=== PATIENT | female | born 1950 | race Caucasian/White ===

== ENCOUNTER 2019-07-21 09:35 | Observation (INO) ==
[2019-07-21] MEDS ORDERED: Isovue-370 500 ML BOTTLE IVP ONE ×2 (10:15→10:16)
[2019-07-21 10:28] LABS: Hematocrit 38.9 % (35.3-44.9); Hemoglobin 13.3 g/dL (11.5-15.4); Mean Corpuscular HGB Conc 34.2 g/dL (31.6-35.5); Mean Corpuscular Hemoglobin 31.2 pg (28.0-33.3); Mean Corpuscular Volume 91.3 fL (83.0-100.0); Mean Platelet Volume 11.2 fL (9.4-12.4); Platelet Count 158 K/mcL (140-400); Red Blood Count 4.26 M/mcL (3.82-4.97); White Blood Count 6.4 K/mcL (4.3-11.1)
[2019-07-21] MEDS ORDERED: Aspirin 325 MG TABLET PO ONE (10:40)
[2019-07-21 11:00] LABS: BUN/Creatinine Ratio 28 (6-26); Blood Urea Nitrogen 22 mg/dL (8-23); Calcium 10.1 mg/dL (8.6-10.3); Carbon Dioxide 29 mEq/L (23-29); Chloride 102 mEq/L (98-107); Ethanol < 10 mg/dL (Less than 10); Glucose 152 mg/dL (70-105); Osmolality,Calculated 306 (280-300); Potassium 3.7 mEq/L (3.5-5.1); Sodium 145 mEq/L (136-145); Troponin I < 0.03 ng/mL (< 0.04); eGFR For African Americans > 60 (> 60); eGFR For Non-African Americans > 60 (> 60)
[2019-07-21] MEDS ORDERED: Naloxone 0.4 MG/ML INJ IVP PRN (15:49)
[2019-07-22 07:15] LABS: Basophils # 0.1 K/mcL (0.0-0.2); Basophils % 1.1 %; Eosinophils # 0.2 K/mcL (0.0-0.6); Eosinophils % 4.2 %; Hematocrit 36.3 % (35.3-44.9); Hemoglobin 12.2 g/dL (11.5-15.4); Immature Granulocytes % 0.4 % (0-4); Lymphocytes # 1.6 K/mcL (0.6-4.6); Lymphocytes % 34.2 %; Mean Corpuscular HGB Conc 33.6 g/dL (31.6-35.5); Mean Corpuscular Hemoglobin 30.8 pg (28.0-33.3); Mean Corpuscular Volume 91.7 fL (83.0-100.0); Mean Platelet Volume 11.3 fL (9.4-12.4); Monocytes # 0.3 K/mcL (0.0-1.3); Monocytes % 6.5 %; Neutrophils # 2.6 K/mcL (1.6-8.9); Platelet Count 135 K/mcL (140-400); Red Blood Count 3.96 M/mcL (3.82-4.97); Red Cell Distribution Width 12.2 % (11.5-14.5); Segmented Neutrophils % 53.6 %; White Blood Count 4.8 K/mcL (4.3-11.1)
[2019-07-22 07:16] LABS: BUN/Creatinine Ratio 29 (6-26); Blood Urea Nitrogen 23 mg/dL (8-23); Calcium 9.8 mg/dL (8.6-10.3); Carbon Dioxide 31 mEq/L (23-29); Chloride 102 mEq/L (98-107); Glucose 174 mg/dL (70-105); Osmolality,Calculated 306 (280-300); Phosphorous 3.2 mg/dL (2.7-4.5); Potassium 3.8 mEq/L (3.5-5.1); Sodium 144 mEq/L (136-145); Troponin I < 0.03 ng/mL (< 0.04); eGFR For African Americans > 60 (> 60); eGFR For Non-African Americans > 60 (> 60)
[2019-07-22 08:25] VITALS: BP 128/65
[2019-07-22] MEDS ORDERED: Aspirin Enteric Coated 81 MG Tablet PO SCH (09:00)
== END 2019-07-22 11:20 | disposition home or self-care (01) ==
LOC: 3BNU 09:35 → EMEROOARM 09:35 → 3BNU 14:31
PROVIDERS: ADMIT Internal Medicine; ATTEND Internal Medicine